=== PATIENT | male | born 1995 | race Caucasian/White ===

== ENCOUNTER 2017-07-17 22:18 | Emergency (ER) | payer SELFPAY ==
[2017-07-17] MEDS ORDERED: Lidocaine 1% w/Epinephrine 1:100K 20 ML VIAL ONE (22:28)
== END 2017-07-18 00:32 | disposition home or self-care (01) ==
LOC: ERS 22:18
DX: S01.01XA Laceration without foreign body of scalp, initial encounter (principal); W22.8XXA Striking against or struck by other objects, initial encounter
CPT/HCPCS: 12001; J2001

== ENCOUNTER 2017-07-25 15:33 | Emergency (ER) | payer SELFPAY | END 2017-07-25 15:42 | disposition home or self-care (01) | LOC: ERS 15:33 | DX: S01.81XD Laceration without foreign body of other part of head, subsequent encounter (principal) ==